=== PATIENT | male | born 1990 | race Caucasian/White ===

== ENCOUNTER 2021-09-20 08:37 | Emergency (ER) | payer OTHER ==
[2021-09-20] MEDS ORDERED: predniSONE 20 MG Tab PO ONE (09:52)
--- NOTE | 2021-09-20 09:59 | EDM.PDOC ---
ED HPI GENERAL MEDICAL PROBLEM - General Chief Complaint: Skin Complaint Stated Complaint: HIVES ON PTS BACK Time Seen by Provider: 09/20/21 09:11 - History of Present Illness INITIAL COMMENTS - FREE TEXT/NARRATIVE: CHIEF COMPLAINT(S): Rash HISTORY OF PRESENT ILLNESS: This is a 31-year-old man without any significant past medical history who comes to the emergency department with a chief complaint of rash. The patient states that for approximately 24 hours now he has been experiencing hives all over his body mainly located on his back and both of his legs. He states that it is very itchy. He denies any redness, warmth, fever or chills. He states that he does not know what caused these hives. No known exposures and he has never had an issue like this before. He states that he tried 1 dose of Benadryl last night which did not seem to help. He denies any shortness of breath, wheezing, vomiting, or diarrhea. He denies any other symptoms. REVIEW OF SYSTEMS: Constitutional: Denies fever, chills. Eyes: Denies eye pain Ears, Nose, Mouth, & Throat: Denies earache Cardiovascular: Denies chest pain Respiratory: Denies shortness of breath Gastrointestinal: Denies Nausea, vomiting, diarrhea, hematochezia. Genitourinary: Denies hematuria Skin: Positive for itchy rash and hives MSK: Denies joint pain Neurological: Denies blurred vision Psychiatric: Denies depression PAST MEDICAL HISTORY: As per history of present illness and as reviewed below otherwise noncontributory. SURGICAL HISTORY: As per history of present illness and as reviewed below otherwise noncontributory. SOCIAL HISTORY: As per history of present illness and as reviewed below otherwise noncontributory. FAMILY HISTORY: As per history of present illness and as reviewed below otherwise noncontributory. EXAMINATION OF ORGAN SYSTEMS/BODY AREAS: Constitutional: Blood pressure is 146/100, heart rate 66, respiratory rate 18 with an oxygen saturation 98% on room air. Temperature 36.2 General: Well-appearing man who is in no acute distress Psychiatric: Appropriate mood and affect. Eyes: No scleral icterus or conjunctival erythema ENMT: Moist mucous membranes. No pharyngeal erythema no stridor, drooling, trismus. Cardiovascular: Regular, rate, and rhythm. No gallops, murmurs, or rubs. Bilateral upper extremity pulses symmetric and intact. No peripheral edema. No JVD. Respiratory: Lungs clear to auscultation bilaterally. No wheezes, rales, or rhonchi. Gastrointestinal: Soft, non-tender, non-distended. Normoactive bowel sounds Genitourinary: No suprapubic tenderness Musculoskeletal: Normal range of motion. Skin: There is a sparse urticarial rash located throughout the patient's back and bilateral legs and anterior abdomen. No erythema. Neurological: Alert, GCS 15 MEDICAL DECISION MAKING AND COURSE IN THE ED WITH INTERPRETATION/REVIEW OF DIAGNOSTIC STUDIES: This is a 31-year-old man without any significant past medical history who comes to the emergency department with urticarial rash who has normal vital signs. At this time the patient does not meet anaphylaxis. Given its duration I do not believe this represents an emergent condition. We will provide the patient with prednisone by mouth and discussed use of Benadryl at home for symptomatic relief. I did prescribe the patient with prednisone at home for the next 5 days. He was given strict return precautions. The patient was amenable discharge and had no further questions DISPOSITION: The patient was discharged home in stable condition. The patient will follow up with pcp within 3-5 days CONDITION: fair PROCEDURES: None FINAL IMPRESSION(S)/DIAGNOSES: 1. acute urticaria Anthony Le M.D. back Pain Score (Numeric/FACES): 8 - Related Data Allergies Allergy/AdvReac Type Severity Reaction Status Date / Time No Known Allergies Allergy Verified 09/20/21 09:12 Home Meds: Home Meds predniSONE [Prednisone] 50 mg PO DAILY #5 tablet 09/20/21 [Rx] Past Medical History - Infectious Disease History Infectious Disease History: Reports: Chicken Pox ED ROS GENERAL - Review of Systems Review Of Systems: See Below ED EXAM, SKIN/RASH Exam: See Below Course - Vital Signs Last Recorded V/S: Last Vital Signs Temp 36.2 C 09/20/21 09:13 Pulse 70 09/20/21 09:56 Resp 18 09/20/21 09:13 BP 125/68 09/20/21 09:56 Pulse Ox 95 09/20/21 09:56 - Orders/Labs/Meds Meds: Medications Discontinued Medications Generic Name Dose Route Start Last Admin Trade Name Freq PRN Reason Stop Dose Admin Prednisone 60 mg 09/20/21 09:52 09/20/21 09:55 Prednisone 20 Mg Tab PO 09/20/21 09:53 60 mg ONETIME ONE Administration Departure - Departure Time of Disposition: 09:56 Disposition: Home, Self-Care 01 Condition: Fair Clinical Impression: Urticaria - Discharge Information *PRESCRIPTION DRUG MONITORING PROGRAM REVIEWED*: No *COPY OF PRESCRIPTION DRUG MONITORING REPORT IN PATIENT PRAFUL: No Prescriptions: predniSONE [Prednisone] 50 mg PO DAILY #5 tablet Instructions: Hives, [id number] Referrals: PCP,None [Primary Care Provider] - Forms: ED Department Discharge Additional Instructions: You were evaluated today on an emergent basis. At this time I do believe you are experiencing hives secondary to an allergic reaction. At this time we do not know the source. I recommend you use Benadryl 25 to 50 mg every 6 hours for itching. 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 If you at work you may apply Benadryl cream which can be purchased at the pharmacy or at [id number]. I did prescribe you prednisone which is a steroid which you need to take daily for the next 5 days. If you have any worsening symptoms such as shortness of breath, wheezing, feel like your throat is closing I would like you to return to the emergency department. Otherwise it is important that you follow-up with your primary care physician in 3 to 5 days. Your prescription was sent to [facility] [address] [place] [address] [id number] [address] [id number] The patient is informed of any results of their evaluation and diagnostic workup and all questions are answered. They are given discharge instructions and return precautions. The patient is stable for discharge. The patient states they understand and agree with the plan and that they will return if their symptoms get worse or if they have any new concerns. The following information is given to patients seen in the emergency department who are being discharged to home. This information is to outline your options for follow-up care. We provide all patients seen in our emergency department with a follow-up referral. The need for follow-up, as well as the timing and circumstances, are variable depending upon the specifics of your emergency department visit. If you don't have a primary care physician on staff, we will provide you with a referral. We always advise you to contact your personal physician following an emergency department visit to inform them of the circumstance of the visit and for follow-up with them and/or the need for any referrals to a consulting specialist. The emergency department will also refer you to a specialist when appropriate. This referral assures that you have the opportunity for follow-up care with a specialist. All of these measure are taken in an effort to provide you with optimal care, which includes your follow-up. Under all circumstances we always encourage you to contact your private physician who remains a resource for coordinating your care. When calling for follow-up care, please make the office aware that this follow-up is from your recent emergency room visit. If for any reason you are refused follow-up, please contact the [facility] at and asked to speak to the emergency department charge nurse. Sepsis Event Note (ED) - Evaluation Sepsis Screening Result: No Definite Risk
== END 2021-09-20 10:09 | disposition home or self-care (01) ==
LOC: MW.ED 08:37
DX: L50.9 Urticaria, unspecified (principal)
CPT/HCPCS: 99282; A9270